=== PATIENT | male | born 1985 | race Caucasian/White ===

== ENCOUNTER 2016-06-23 13:05 | Emergency (ER) | payer OTHER ==
[2016-06-23] MEDS ORDERED: PROPARACAINE HCL 0.5% 300 GTTS/BOT SOLN.DROP ONE ×2 (13:16→13:21)
== END 2016-06-23 14:07 | disposition home or self-care (01) ==
LOC: ED 13:05
DX: S05.92XA Unspecified injury of left eye and orbit, initial encounter (principal); X58.XXXA Exposure to other specified factors, initial encounter; Y93.H3 Activity, building and construction; Y92.69 Other specified industrial and construction area as the place of occurrence of the external cause; Y99.0 Civilian activity done for income or pay
CPT/HCPCS: 99283; 99282; A9270 ×2